=== PATIENT | male | born 1990 | race Caucasian/White ===

== ENCOUNTER 2017-03-09 13:33 | Emergency (ER) | payer OTHER ==
[~2017-03-09] VITALS: Ht 185.4 cm; Wt 73.0 kg
[~2017-03-09 13:33] MED LIST: ADVIL200 MG PO; ALPRAZOLAM ER1 MG PO; AMOXICILLIN875 MG PO; IBUPROFEN600 MG PO; NORCO 5-325 TA1 EACH PO; OMEPRAZOLE20 MG PO; PENICILLIN V P500 MG PO; ULTRAM50 MG PO
[2017-03-09] MEDS ORDERED: NORCO 5-325 TA1 EACH PO (14:39)
[2017-03-09] MEDS ORDERED: AUGMENTIN 875-1 EACH PO (14:39)
== END 2017-03-09 15:00 | disposition home or self-care (01) ==
LOC: ED 13:33
PROC: 0HQLXZZ Repair Left Lower Leg Skin, External Approach (ICD-10-PCS; principal; 2017-03-09)
DX: S71.112A Laceration without foreign body, left thigh, initial encounter (principal); Z79.899 Other long term (current) drug therapy; W22.8XXA Striking against or struck by other objects, initial encounter
CPT/HCPCS: 12004; 90471; 90715; 99283

== ENCOUNTER 2017-07-25 17:53 | Emergency (ER) | payer OTHER ==
[~2017-07-25] VITALS: Ht 185.4 cm; Wt 73.0 kg
[~2017-07-25 17:53] MED LIST changes: +AUGMENTIN 875-1 EACH PO
== END 2017-07-25 18:44 | disposition home or self-care (01) ==
LOC: ED 17:53
DX: T15.81XA Foreign body in other and multiple parts of external eye, right eye, initial encounter (principal)
CPT/HCPCS: 99283